=== PATIENT | male | born 1970 | race Hispanic/Latino ===

== ENCOUNTER 2019-06-09 14:03 | Emergency (ER) | payer SELFPAY ==
[2019-06-09] MEDS ORDERED: KETOROLAC TROMETHAMINE 30MG/ML ONE (14:34)
[2019-06-09] MEDS ORDERED: ACETAMINOPHEN-CODEINE 300/30MG TAB ONE (15:14)
== END 2019-06-09 15:21 | disposition home or self-care (01) ==
LOC: EDH 14:03
DX: S93.491A Sprain of other ligament of right ankle, initial encounter (principal); Z87.891 Personal history of nicotine dependence; W18.39XA Other fall on same level, initial encounter; Y93.89 Activity, other specified; Y92.098 Other place in other non-institutional residence as the place of occurrence of the external cause; Y99.8 Other external cause status
CPT/HCPCS: 73610; 96372; 99284; J1885